=== PATIENT | female | born 1945 | race Caucasian/White ===

== ENCOUNTER 2017-04-09 16:59 | Observation (INO) | payer MEDICARE, BC ==
--- NOTE | 2017-04-09 17:37 | RAD ---
INDICATION: Chest pain COMPARISON: January 09, 2016 TECHNIQUE: An AP portable view obtained at 1720 hours is submitted. FINDINGS: Bones/Soft Tissues: There are no acute bony findings. Cardiomediastinal: The cardiomediastinal silhouette is normal. Lungs: There are no infiltrates. Pleura: There are no pleural effusions. Other: None IMPRESSION: NO ACTIVE DISEASE.
[2017-04-09 17:57] LABS: Hematocrit 41 % (35-47); Hemoglobin 13.9 g/dl (12.0-16.0); Mean Corpuscular HGB Conc 34 g/dl (31-36); Mean Corpuscular Hemoglobin 30 pg (27-31); Mean Corpuscular Volume 89 fL (80-97); Mean Platelet Volume 8 um3 (7.4-10.4); Red Cell Distribution Width 14 % (10.5-15); White Blood Count 5.4 10^3/ul (3.5-10.8)
[2017-04-09 18:14] LABS: ALT 10 U/L (7-52); AST 12 U/L (13-39); Albumin 4.1 g/dL (3.2-5.2); Alkaline Phosphatase 46 U/L (34-104); Anion Gap 9 mmol/L (2-11); BUN/Creatinine Ratio 20.8 (8-20); Blood Urea Nitrogen 21 mg/dL (6-24); C Reactive Protein < 1.00 mg/L (< 5.00); CO2 Carbon Dioxide 25 mmol/L (22-32); Calcium 9.3 mg/dL (8.6-10.3); Chloride 102 mmol/L (101-111); EGFR African American 69.5 (>60); Globulin 2.2 g/dL (2-4); Glucose 100 mg/dL (70-100); Lipase 24 U/L (11.0-82.0); Magnesium 2.1 mg/dL (1.9-2.7); Potassium 3.7 mmol/L (3.5-5.0); Sodium 136 mmol/L (133-145); Total Protein 6.3 g/dL (6.4-8.9)
[2017-04-09 18:42] LABS: TSH (Thyroid Stimulating Horm) 1.89 mcIU/mL (0.34-5.60)
[2017-04-09 21:47] LABS: Urine Bacteria Absent (Absent); Urine Bilirubin Negative (Negative); Urine Glucose Negative (Negative); Urine Nitrite Negative (Negative)
--- NOTE | 2017-04-09 21:49 | ED ---
Anusha Valverde Alfonso, scribed for John Dorado MD on 04/09/17 at 1813 . HPI Chest Pain - HPI Summary HPI Summary: This patient is a 72 year old F presenting to [facility] accompanied by a female with a chief complaint of chest pain since 3 days ago. The CC is described as heaviness. The patient rates the pain 5/10 in severity. Symptoms aggravated and alleviated by nothing. Patient reports fatigue, throat tightening, near syncope (3 times), pruritic rash across abdomen and on the chest, flea bites, mood swings, feeling paranoid, and SOB. Pt exercises outside 1 mile a day but has been unable to this past week secondary to weakness. PMHx of asthma. - History of Current Complaint Chief Complaint: EDChestPainROMI Time Seen by Provider: 04/09/17 18:02 Hx Obtained From: Patient Onset/Duration: Started Days Ago - 3 days ago Current Severity: Moderate Pain Intensity: 5 Pain Scale Used: 0-10 Numeric Character: Heaviness Aggravating Factor(s): Nothing Alleviating Factor(s): Nothing Associated Signs and Symptoms: Positive: Other: - Patient reports fatigue, throat tightening, near syncope (3 times), pruritic rash across abdomen and on the chest, flea bites, mood swings, feeling paranoid, and SOB. - Allergy/Home Medications Allergies/Adverse Reactions: Allergies Allergy/AdvReac Type Severity Reaction Status Date / Time Aspirin Allergy Severe Difficulty Verified 04/09/17 17:23 Breathing/Wheezing Diphenhydramine Allergy Severe Itching Verified 04/09/17 17:23 [From Benadryl] Levofloxacin [From Levaquin] Allergy Severe Unknown Verified 04/09/17 17:23 Reaction Details Penicillins Allergy Severe Itching Verified 04/09/17 17:23 Shellfish Allergy Allergy Severe Swelling Verified 04/09/17 17:23 Montelukast [From Singulair] Allergy Intermediate Rash Verified 04/09/17 17:23 Tetracycline Allergy Intermediate Itching Verified 04/09/17 17:23 Dextromethorphan Allergy Unknown Unknown Verified 04/09/17 17:23 [From Mucinex DM] Reaction Details Guaifenesin [From Mucinex DM] Allergy Unknown Unknown Verified 04/09/17 17:23 Reaction Details Statins Allergy Unknown Muscle Ache Verified 04/09/17 17:23 Yellow Dye [From Mucinex DM] Allergy Unknown Unknown Verified 04/09/17 17:23 Reaction Details Fluticasone Allergy Joint Pain Verified 04/09/17 17:23 [From Advair Diskus] Milk Protein Extract Allergy Joint Pain Verified 04/09/17 17:23 [From Advair Diskus] Salmeterol Allergy Joint Pain Verified 04/09/17 17:23 [From Advair Diskus] bee sting Allergy Severe Swelling Uncoded 04/09/17 17:23 PMH/Surg Hx/FS Hx/Imm Hx Cardiovascular History: Reports: Hx Hypercholesterolemia Respiratory History: Reports: Hx Asthma, Hx Sleep Apnea - evaluation for 03/2014 GI History: Reports: Hx Irritable Bowel Musculoskeletal History: Denies: Hx Osteoporosis Sensory History: Reports: Hx Cataracts, Hx Macular Degeneration Opthamlomology History: Reports: Hx Cataracts, Hx Macular Degeneration Psychiatric History: Reports: Hx Depression - Cancer History Hx Chemotherapy: No Hx Radiation Therapy: No Infectious Disease History: No Infectious Disease History: Denies: Traveled Outside the [place] in Last 30 Days - Family History Known Family History: Positive: Cardiac Disease - CHF, Other - CVA - Social History Alcohol Use: None Hx Substance Use: No Smoking Status (MU): Former Smoker Type: Cigarettes Have You Smoked in the Last Year: No Review of Systems Positive: Fatigue Positive: Other - throat tightening Positive: Shortness Of Breath Positive: Rash - pruritic rash across abdomen and on the chest, Other - flea bites Positive: Syncope - Near syncope Positive: Other - Mood swings, feeling paranoid All Other Systems Reviewed And Are Negative: Yes Physical Exam Triage Information Reviewed: Yes Vital Signs On Initial Exam: Initial Vitals Temp Pulse Resp BP Pulse Ox 96.9 F 74 20 135/83 98 04/09/17 17:00 04/09/17 17:00 04/09/17 17:00 04/09/17 17:00 04/09/17 17:00 Vital Signs Reviewed: Yes Appearance: Positive: Well-Appearing, No Pain Distress Skin: Positive: Warm, Skin Color Reflects Adequate Perfusion, Dry Head/Face: Positive: Normal Head/Face Inspection Eyes: Positive: Normal ENT: Positive: Normal ENT inspection Neck: Positive: Supple, Nontender Respiratory/Lung Sounds: Positive: Clear to Auscultation, Breath Sounds Present Cardiovascular: Positive: RRR Abdomen Description: Positive: Nontender, Soft Bowel Sounds: Positive: Present Musculoskeletal: Positive: Normal Neurological: Positive: Normal, Sensory/Motor Intact, Alert, Oriented to Person Place, Time, CN Intact II-III Psychiatric: Positive: Affect/Mood Appropriate Diagnostics - Vital Signs Vital Signs Temp Pulse Resp BP Pulse Ox 04/09/17 17:30 70 17 116/71 100 04/09/17 17:26 70 16 100 04/09/17 17:25 112/74 04/09/17 17:22 96.9 F 74 16 135/83 100 04/09/17 17:00 96.9 F 74 20 135/83 98 - Laboratory Lab Results: Lab Results 04/09/17 04/09/17 04/09/17 Range/Units 17:40 17:40 17:40 WBC 5.4 (3.5-10.8) 10^3/ul RBC 4.60 (4.0-5.4) 10^6/ul Hgb 13.9 (12.0-16.0) g/dl Hct 41 (35-47) % MCV 89 (80-97) fL MCH 30 (27-31) pg MCHC 34 (31-36) g/dl RDW 14 (10.5-15) % Plt Count 262 (150-450) 10^3/ul MPV 8 (7.4-10.4) um3 Neut % (Auto) 49.7 (38-83) % Lymph % (Auto) 33.6 (25-47) % [place] % (Auto) 13.6 H (1-9) % Eos % (Auto) 2.5 (0-6) % Baso % (Auto) 0.6 (0-2) % Absolute Neuts (auto) 2.7 (1.5-7.7) 10^3/ul Absolute Lymphs (auto) 1.8 (1.0-4.8) 10^3/ul Absolute Monos (auto) 0.7 (0-0.8) 10^3/ul Absolute Eos (auto) 0.1 (0-0.6) 10^3/ul Absolute Basos (auto) 0 (0-0.2) 10^3/ul Absolute Nucleated RBC 0 10^3/ul Nucleated RBC % 0 INR (Anticoag Therapy) 0.97 (0.89-1.11) APTT 30.4 (26.0-36.3) seconds D-Dimer, Quantitative < 200 (Less Than 230) ng/mL Sodium 136 (133-145) mmol/L Potassium 3.7 (3.5-5.0) mmol/L Chloride 102 (101-111) mmol/L Carbon Dioxide 25 (22-32) mmol/L Anion Gap 9 (2-11) mmol/L BUN 21 (6-24) mg/dL Creatinine 1.01 H (0.51-0.95) mg/dL Est GFR ( Amer) 69.5 (>60) Est GFR (Non-Af Amer) 54.0 (>60) BUN/Creatinine Ratio 20.8 H (8-20) Glucose 100 (70-100) mg/dL Lactic Acid (0.5-2.0) mmol/L Calcium 9.3 (8.6-10.3) mg/dL Magnesium 2.1 (1.9-2.7) mg/dL Total Bilirubin 0.70 (0.2-1.0) mg/dL AST 12 L (13-39) U/L ALT 10 (7-52) U/L Alkaline Phosphatase 46 (34-104) U/L Troponin I 0.00 (<0.04) ng/mL C-Reactive Protein < 1.00 (< 5.00) mg/L B-Natriuretic Peptide ( - 100) pg/mL Total Protein 6.3 L (6.4-8.9) g/dL Albumin 4.1 (3.2-5.2) g/dL Globulin 2.2 (2-4) g/dL Albumin/Globulin Ratio 1.9 (1-3) Lipase 24 (11.0-82.0) U/L TSH 1.89 (0.34-5.60) mcIU/mL Urine Color Urine Appearance Urine pH (5-9) Ur Specific [place] (1.010-1.030) Urine Protein (Negative) Urine Ketones (Negative) Urine Blood (Negative) Urine Nitrate (Negative) Urine Bilirubin (Negative) Urine Urobilinogen (Negative) Ur Leukocyte Esterase (Negative) Urine WBC (Auto) (Absent) Urine RBC (Auto) (Absent) Ur Squamous Epith Cells (Absent) Urine Bacteria (Absent) Urine Glucose (Negative) 04/09/17 04/09/17 04/09/17 Range/Units 17:40 17:40 21:05 WBC (3.5-10.8) 10^3/ul RBC (4.0-5.4) 10^6/ul Hgb (12.0-16.0) g/dl Hct (35-47) % MCV (80-97) fL MCH (27-31) pg MCHC (31-36) g/dl RDW (10.5-15) % Plt Count (150-450) 10^3/ul MPV (7.4-10.4) um3 Neut % (Auto) (38-83) % Lymph % (Auto) (25-47) % [place] % (Auto) (1-9) % Eos % (Auto) (0-6) % Baso % (Auto) (0-2) % Absolute Neuts (auto) (1.5-7.7) 10^3/ul Absolute Lymphs (auto) (1.0-4.8) 10^3/ul Absolute Monos (auto) (0-0.8) 10^3/ul Absolute Eos (auto) (0-0.6) 10^3/ul Absolute Basos (auto) (0-0.2) 10^3/ul Absolute Nucleated RBC 10^3/ul Nucleated RBC % INR (Anticoag Therapy) (0.89-1.11) APTT (26.0-36.3) seconds D-Dimer, Quantitative (Less Than 230) ng/mL Sodium (133-145) mmol/L Potassium (3.5-5.0) mmol/L Chloride (101-111) mmol/L Carbon Dioxide (22-32) mmol/L Anion Gap (2-11) mmol/L BUN (6-24) mg/dL Creatinine (0.51-0.95) mg/dL Est GFR ( Amer) (>60) Est GFR (Non-Af Amer) (>60) BUN/Creatinine Ratio (8-20) Glucose (70-100) mg/dL Lactic Acid 1.0 (0.5-2.0) mmol/L Calcium (8.6-10.3) mg/dL Magnesium (1.9-2.7) mg/dL Total Bilirubin (0.2-1.0) mg/dL AST (13-39) U/L ALT (7-52) U/L Alkaline Phosphatase (34-104) U/L Troponin I (<0.04) ng/mL C-Reactive Protein (< 5.00) mg/L B-Natriuretic Peptide 18 ( - 100) pg/mL Total Protein (6.4-8.9) g/dL Albumin (3.2-5.2) g/dL Globulin (2-4) g/dL Albumin/Globulin Ratio (1-3) Lipase (11.0-82.0) U/L TSH (0.34-5.60) mcIU/mL Urine Color Yellow Urine Appearance Clear Urine pH 6.0 (5-9) Ur Specific [place] 1.017 (1.010-1.030) Urine Protein Negative (Negative) Urine Ketones 1+ H (Negative) Urine Blood Negative (Negative) Urine Nitrate Negative (Negative) Urine Bilirubin Negative (Negative) Urine Urobilinogen Negative (Negative) Ur Leukocyte Esterase Trace H (Negative) Urine WBC (Auto) 1+(6-10/hpf) H (Absent) Urine RBC (Auto) Trace(0-2/hpf) (Absent) Ur Squamous Epith Cells Present H (Absent) Urine Bacteria Absent (Absent) Urine Glucose Negative (Negative) Result Diagrams: 04/09/17 17:40 04/09/17 17:40 Lab Statement: Any lab studies that have been ordered have been reviewed, and results considered in the medical decision making process. - Radiology CXR Radiology Interpretation Completed By: Radiologist - NO ACTIVE DISEASE. - EKG 1738 Cardiac Rate: NL - 65 bpm EKG Rhythm: Sinus Rhythm ST Segment: Normal EKG Interpretation: NAC Chest Pain Course/Dx - Course Course Of Treatment: Ms. Buck has a variety of C/O the most worrisome of which are chest pressure and episodes of near syncope. Her W/U was negative but she did have periods of frequent APC's on the monitor and I am concerned that she may be having dysrythmias. - Diagnoses Provider Diagnoses: Near syncope - Provider Notifications Discussed Care Of Patient With: Shahrzad Nixon Time Discussed With Above Provider: 21:19 Instructed by Provider To: Other - Consulted Dr. Nixon (hospitalist) who agrees to admit. Discharge - Discharge Plan Condition: Stable Disposition: ADMITTED TO [facility] Referrals: Libby Duarte MD [Primary Care Provider] - The documentation as recorded by the Anusha novoa Alfonso accurately reflects the service I personally performed and the decisions made by me, John Dorado MD.
[2017-04-09] MEDS ORDERED: NS 0.9% 1000 ML* 1,000 ML IV SCH (22:00)
--- NOTE | 2017-04-10 01:21 | HP ---
CC: Libby Duarte MD * HISTORY AND PHYSICAL: DATE OF ADMISSION: 04/09/17 PRIMARY CARE PROVIDER: Libby Duarte MD. ATTENDING PHYSICIAN: Shahrzad Nixon DO * (dictated by Darlene Shaffer NP). CHIEF COMPLAINT: Near syncope and chest heaviness for 3 days. HISTORY OF PRESENT ILLNESS: Ms. Buck is a 72-year-old female with past medical history significant for asthma, hyperlipidemia, irritable bowel syndrome , cataracts, macular degeneration, obstructive sleep apnea and depression, who presented to the emergency room with complaints of 3 days of intermittent chest heaviness with pain that started as sharpness in her sternum and radiates to the left side of her chest around her axillary area. Ms. Buck also has complaints of intermittent subjective fevers. She also reports that she has had more intermittent chest pain in general over the last 2 weeks, sometimes with shortness of breath. She also reports diarrhea over the last couple of days. She reports an extreme fatigue and needing to take naps during the day when she would generally not need to take naps. She also feels as though her throat is tight. She describes a feeling of like she was going to pass out when she stood up today and has had that one other time over the last couple of weeks. She also reports that over the last of couple of weeks she has had 2 episodes of what she describes as a curtain-like loss in her vision once while she was driving where at first, she feels likes a light colored curtain is coming over her eyes, that then turns to a darker and total blackness as the "curtain" in both eyes that lasted for a couple of seconds and then resolved. The patient feels that when she has been more fatigued recently, she may have been having some slurred speech, but other than that she denies any neurological deficits including facial drooping, one-sided weakness or slurred speech at any other times. The patient also reports a rash on her legs and thigh that she feels was caused from flee bites whiles visiting a friend's house. The patient also reports an itchy rash on her abdomen, chest and back that has been intermittent over the last few days that is currently not present. The patient has recently been having mood swings and paranoia, but she stopped taking Ocuvite and found that these symptoms have resolved. The patient states that she has been unable to exercise in which she usually walks a mile every day over the past week due to her extreme fatigue. The patient reports generally not having an appetite and has noticed that she has not been eating just because she has not been hungry. She reports yesterday having some pain in the center of her abdomen and having some bloating. She does feel as though some of her IBS symptoms may be getting worse. The patient denies any urinary symptoms. She decided to present to the emergency room for further evaluation of her symptoms. While in the emergency room, the patient had an EKG showing a sinus rhythm at the rate of 65, no signs of acute ischemia. This EKG was similar to previous EKG's. The patient had a chest x-ray showing no active cardiopulmonary disease. She had labs that were fairly unremarkable. Due to the patient's episode of near syncope, the hospitalists were asked to evaluate the patient for admission. PAST MEDICAL HISTORY: 1. Asthma. 2. Hyperlipidemia. 3. IBS. 4. Cataracts. 5. Macular degeneration. 6. Depression. 7. Obstructive sleep apnea. PAST SURGICAL HISTORY: 1. Status post cholecystectomy. 2. Status post tonsillectomy as a child. HOME MEDICATIONS: Include: 1. Albuterol 1 to 2 puffs inhalation every 4 hours as needed for shortness of breath or wheeze. 2. EpiPen as needed for allergy symptoms. ALLERGIES: Include ASPIRIN which causes difficulty breathing, BENADRYL which causes itching, LEVAQUIN and PENICILLIN causes itching, SHELLFISH which causes swelling, SINGULAIR causes rash, TETRACYCLINE causes itching, MUCINEX, STATINS cause muscle aches and joint pain, ADVAIR causes joint pain, BEE STINGS causes swelling. FAMILY HISTORY: The patient's maternal uncle had a history of hyperlipidemia and blocked carotids and underwent experimental treatment to correct the carotid blockages and lived into his 70s or 80s. The patient had a maternal aunt with a history of cerebrovascular accidents and congestive heart failure. The patient's maternal grandfather had a history of myocardial infarction in his 70s. The patient denies any family history of diabetes mellitus. The patient's maternal grandmother had a history of cervical cancer. The patient's mother passed at age 38 from ulcerative colitis complications. SOCIAL HISTORY: The patient is a former smoker, quitting at age 26, prior to that she smoked up to 3 packs a day during an 8-year time period. The patient rarely drinks alcohol. She denies recreational drug use. She is retired, but works as an artist. She lives with her , Yancy Maria, who will be her surrogate decision maker in the event she is unable to make decisions for herself. REVIEW OF SYSTEMS: I performed a 14-point review of systems. All the pertinent positives and negatives are mentioned in the history of present illness. The remaining review of systems are negative. PHYSICAL EXAMINATION GENERAL APPEARANCE: The patient is alert, pleasant, appears to be in no acute distress. VITAL SIGNS: Temperature 96.9, heart rate 65, respiratory rate 19, O2 sat 97% on room air, blood pressure 128/68. HEENT: Normocephalic, atraumatic. Pupils are equal and reactive to light. Extraocular movements are intact. NECK: Supple. There is no lymphadenopathy noted. RESPIRATORY: There is no accessory muscle use and the lungs are clear to auscultation bilateral. CARDIOVASCULAR: Regular rate and rhythm. S1 and S2 present. There is no murmurs, rubs or gallops heard. ABDOMEN: Soft, nontender, nondistended. Bowel sounds present x4. EXTREMITIES: There is no lower extremity edema. DP and PT pulses are 2+ and symmetric. MUSCULOSKELETAL: There is no clubbing or cyanosis noted. The patient exhibits good strength in all extremities. NEUROLOGIC: The patient is alert and oriented x4. Cranial nerves II through XII are grossly intact. The patient is able to perform [id number] bilateral without difficulty. Her hand mat cutter are equal. Her smile is symmetric. Her tongue is midline. She has no pronator drift. PSYCHOLOGICAL: The patient is calm and cooperative. SKIN: There are no rashes or abnormalities seen. DIAGNOSTIC STUDIES/LABORATORY DATA: Sodium 136, potassium 3.7, chloride 102, CO2 of 24, BUN 21, creatinine 1.01, glucose 100. White blood cell count is 5.4 , hemoglobin 13.9, hematocrit 41, and platelet count 262,000. EKG shows a sinus rhythm with the rate of 65. There are no acute signs of ischemia. The patient's EKG is similar to previous EKG from 01/09/16. Chest x-ray from today. Radiologist impression: No active cardiopulmonary disease. IMPRESSION: Ms. Buck is a 72-year-old female with past medical history significant for asthma, hyperlipidemia, cataracts, macular degeneration, depression, obstructive sleep apnea and irritable bowel syndrome who presented to the emergency room with complaints of intermittent chest discomfort and near - syncopal episodes. She will be admitted as an observation for near syncope. ASSESSMENT/PLAN: 1. Near syncope and vision changes. The patient reports a curtain-like loss of vision in both eyes, lasting for a few seconds and completely resolving. She has intermittently had this twice. We will check a head CT and get bilateral carotid Dopplers. The patient will do neurovascular checks every 4 hours. Check fasting lipids in the morning and monitor the patient on telemetry. We will check orthostatic vital signs. We will also give the patient a liter of fluid overnight and recheck orthostatic vital signs again in the morning. 2. Chest discomfort, unclear etiology at this time. The patient's initial troponin is 0.00. We will check one more troponin at midnight tonight. There are no acute signs of ischemia on her EKG. I will defer the patient's possibility of having a stress test to her primary care provider if she would like to have a stress test in the future as the patient would like to do thus at this time. 3. Hyperlipidemia, the patient is not currently on any medications. We will check a fasting lipid panel in the morning. 4. Macular degeneration and cataracts. The patient follows closely with her senior investigator and has an appointment scheduled to be seen for cataract extractions. 5. Obstructive sleep apnea, the patient will be continued on a CPAP with her home settings. If she continues to have extreme fatigue, she should be considered for a repeat sleep study. She may need to have another sleep apnea study completed. 6. Extreme fatigue, unclear cause. Again, this could be a contributor to the patient's sleep apnea if her CPAP settings are not correct. I do not suspect this is Lyme as the patient has no significant risk factors. She does not walk in the meneses or grassy area. If she does go out in grassy areas, she wears high boots with her pants tucked in. She has not noticed any tick bites or rashes suggestive of Lyme disease. Denies any joint discomfort or rash consistent with Lyme. 7. Fluids, electrolytes, and nutrition. The patient will be on a regular diet. 8. Code status. Full code. 9. DVT prophylaxis. The patient is at a moderate risk and will have subcu heparin. 10. Disposition. Observation. TIME SPENT: Time for this admission was approximately 60 minutes and greater than half of that was spent with the patient and discussing medications, past medical history, and the events leading up to her arrival today and performing a physical examination. The case has been reviewed with the attending, Dr. Nixon, who agrees with the plan of care. Reviewed by SILVIA BARBA 04/12/17 1144 [id number]/[facility] #: [id number] RANI
[2017-04-10 05:25] LABS: HDL Cholesterol 58.4 mg/dL
--- NOTE | 2017-04-10 07:45 | RAD ---
HISTORY: intermittent Loss of vision COMPARISONS: None TECHNIQUE: Multiple contiguous axial CT scans were obtained of the head without intravenous contrast. FINDINGS: HEMORRHAGE/INFARCT: There is no hemorrhage or acute infarct. MASSES/SHIFT: There is no mass or shift. EXTRA-AXIAL SPACES: There are no extra-axial fluid collections. SULCI AND VENTRICLES: The sulci and ventricles are normal in size and position for the patient's stated age. CEREBRUM: There are no focal parenchymal abnormalities. BRAINSTEM: There are no focal parenchymal abnormalities. CEREBELLUM: There are no focal parenchymal abnormalities. VESSELS: The vessels are grossly normal. PARANASAL SINUSES: The paranasal sinuses are clear. ORBITS: The orbits are unremarkable. BONES AND SOFT TISSUE: No bone or soft tissue abnormalities are noted. OTHER: None IMPRESSION: NO ACUTE INTRACRANIAL PATHOLOGY.
--- NOTE | 2017-04-10 10:31 | PN ---
Subjective Date of Service: 04/10/17 Interval History: Patient seen and examined at bedside. Ms. Buck endorses burning in her chest that radiates up into her throat and just above her stomach. She also reports reproducible pain in the left side of her chest in the axilllary region. Denies fever/chills, chest heaviness, visual changes, speech difficulties, shortness of breath. Overall, she feels better, other than the burning with food intake, and reports ambulating within her room. She does report increased fatigue and her partner reports that she often hears air leaks from the patient's CPAP mask at night; the patient states that it does feel looser since she lost weight a few months back. Family History: Unchanged from Admission Social History: Unchanged from Admission Past Medical History: Unchanged from Admission Objective Vital Signs 04/09/17 04/09/17 04/09/17 22:01 22:07 22:11 Temperature 97.7 F 97.7 F Pulse Rate 62 62 72 Respiratory 16 16 Rate Blood Pressure 130/62 130/62 111/68 (mmHg) O2 Sat by Pulse 98 98 Oximetry 04/09/17 04/09/17 04/10/17 22:13 23:49 03:21 Temperature 97.8 F 98.3 F Pulse Rate 79 65 65 Respiratory 16 16 Rate Blood Pressure 99/79 112/58 115/53 (mmHg) O2 Sat by Pulse 99 98 Oximetry 04/10/17 04/10/17 07:14 07:40 Temperature 97.8 F Pulse Rate 62 97 Respiratory 16 Rate Blood Pressure 117/60 120/94 (mmHg) O2 Sat by Pulse 99 Oximetry Oxygen Devices in Use Now: None Appearance: Female patient, lying in bed, in NAD Eyes: No Scleral Icterus Ears/Nose/Mouth/Throat: Clear Oropharnyx, Mucous Membranes Moist Neck: NL Appearance and Movements; NL JVP Respiratory: Symmetrical Chest Expansion and Respiratory Effort, Clear to Auscultation Cardiovascular: NL Sounds; No Murmurs; No JVD, RRR Abdominal: NL Sounds; No Tenderness; No Distention Extremities: No Edema Neurological: Alert and Oriented x 3, NL Gait, NL Muscle Strength and Tone, - - negative pronator drifts, MARIE, speech clear, CN II-XII grossly intact Lines/Tubes/Other Access: Clean, Dry and Intact Peripheral IV Nutrition: Taking PO's Result Diagrams: 04/09/17 17:40 04/09/17 17:40 Additional Lab and Data: Lab Results 04/09/17 04/09/17 04/09/17 Range/Units 17:40 17:40 17:40 WBC 5.4 (3.5-10.8) 10^3/ul RBC 4.60 (4.0-5.4) 10^6/ul Hgb 13.9 (12.0-16.0) g/dl Hct 41 (35-47) % MCV 89 (80-97) fL MCH 30 (27-31) pg MCHC 34 (31-36) g/dl RDW 14 (10.5-15) % Plt Count 262 (150-450) 10^3/ul MPV 8 (7.4-10.4) um3 Neut % (Auto) 49.7 (38-83) % Lymph % (Auto) 33.6 (25-47) % [place] % (Auto) 13.6 H (1-9) % Eos % (Auto) 2.5 (0-6) % Baso % (Auto) 0.6 (0-2) % Absolute Neuts (auto) 2.7 (1.5-7.7) 10^3/ul Absolute Lymphs (auto) 1.8 (1.0-4.8) 10^3/ul Absolute Monos (auto) 0.7 (0-0.8) 10^3/ul Absolute Eos (auto) 0.1 (0-0.6) 10^3/ul Absolute Basos (auto) 0 (0-0.2) 10^3/ul Absolute Nucleated RBC 0 10^3/ul Nucleated RBC % 0 INR (Anticoag Therapy) 0.97 (0.89-1.11) APTT 30.4 (26.0-36.3) seconds D-Dimer, Quantitative < 200 (Less Than 230) ng/mL Sodium 136 (133-145) mmol/L Potassium 3.7 (3.5-5.0) mmol/L Chloride 102 (101-111) mmol/L Carbon Dioxide 25 (22-32) mmol/L Anion Gap 9 (2-11) mmol/L BUN 21 (6-24) mg/dL Creatinine 1.01 H (0.51-0.95) mg/dL Est GFR ( Amer) 69.5 (>60) Est GFR (Non-Af Amer) 54.0 (>60) BUN/Creatinine Ratio 20.8 H (8-20) Glucose 100 (70-100) mg/dL Lactic Acid (0.5-2.0) mmol/L Calcium 9.3 (8.6-10.3) mg/dL Magnesium 2.1 (1.9-2.7) mg/dL Total Bilirubin 0.70 (0.2-1.0) mg/dL AST 12 L (13-39) U/L ALT 10 (7-52) U/L Alkaline Phosphatase 46 (34-104) U/L Troponin I 0.00 (<0.04) ng/mL C-Reactive Protein < 1.00 (< 5.00) mg/L B-Natriuretic Peptide ( - 100) pg/mL Total Protein 6.3 L (6.4-8.9) g/dL Albumin 4.1 (3.2-5.2) g/dL Globulin 2.2 (2-4) g/dL Albumin/Globulin Ratio 1.9 (1-3) Lipase 24 (11.0-82.0) U/L TSH 1.89 (0.34-5.60) mcIU/mL Urine Color Urine Appearance Urine pH (5-9) Ur Specific [place] (1.010-1.030) Urine Protein (Negative) Urine Ketones (Negative) Urine Blood (Negative) Urine Nitrate (Negative) Urine Bilirubin (Negative) Urine Urobilinogen (Negative) Ur Leukocyte Esterase (Negative) Urine WBC (Auto) (Absent) Urine RBC (Auto) (Absent) Ur Squamous Epith Cells (Absent) Urine Bacteria (Absent) Urine Glucose (Negative) 04/09/17 04/09/17 04/09/17 Range/Units 17:40 17:40 21:05 WBC (3.5-10.8) 10^3/ul RBC (4.0-5.4) 10^6/ul Hgb (12.0-16.0) g/dl Hct (35-47) % MCV (80-97) fL MCH (27-31) pg MCHC (31-36) g/dl RDW (10.5-15) % Plt Count (150-450) 10^3/ul MPV (7.4-10.4) um3 Neut % (Auto) (38-83) % Lymph % (Auto) (25-47) % [place] % (Auto) (1-9) % Eos % (Auto) (0-6) % Baso % (Auto) (0-2) % Absolute Neuts (auto) (1.5-7.7) 10^3/ul Absolute Lymphs (auto) (1.0-4.8) 10^3/ul Absolute Monos (auto) (0-0.8) 10^3/ul Absolute Eos (auto) (0-0.6) 10^3/ul Absolute Basos (auto) (0-0.2) 10^3/ul Absolute Nucleated RBC 10^3/ul Nucleated RBC % INR (Anticoag Therapy) (0.89-1.11) APTT (26.0-36.3) seconds D-Dimer, Quantitative (Less Than 230) ng/mL Sodium (133-145) mmol/L Potassium (3.5-5.0) mmol/L Chloride (101-111) mmol/L Carbon Dioxide (22-32) mmol/L Anion Gap (2-11) mmol/L BUN (6-24) mg/dL Creatinine (0.51-0.95) mg/dL Est GFR ( Amer) (>60) Est GFR (Non-Af Amer) (>60) BUN/Creatinine Ratio (8-20) Glucose (70-100) mg/dL Lactic Acid 1.0 (0.5-2.0) mmol/L Calcium (8.6-10.3) mg/dL Magnesium (1.9-2.7) mg/dL Total Bilirubin (0.2-1.0) mg/dL AST (13-39) U/L ALT (7-52) U/L Alkaline Phosphatase (34-104) U/L Troponin I (<0.04) ng/mL C-Reactive Protein (< 5.00) mg/L B-Natriuretic Peptide 18 ( - 100) pg/mL Total Protein (6.4-8.9) g/dL Albumin (3.2-5.2) g/dL Globulin (2-4) g/dL Albumin/Globulin Ratio (1-3) Lipase (11.0-82.0) U/L TSH (0.34-5.60) mcIU/mL Urine Color Yellow Urine Appearance Clear Urine pH 6.0 (5-9) Ur Specific [place] 1.017 (1.010-1.030) Urine Protein Negative (Negative) Urine Ketones 1+ H (Negative) Urine Blood Negative (Negative) Urine Nitrate Negative (Negative) Urine Bilirubin Negative (Negative) Urine Urobilinogen Negative (Negative) Ur Leukocyte Esterase Trace H (Negative) Urine WBC (Auto) 1+(6-10/hpf) H (Absent) Urine RBC (Auto) Trace(0-2/hpf) (Absent) Ur Squamous Epith Cells Present H (Absent) Urine Bacteria Absent (Absent) Urine Glucose Negative (Negative) Assess/Plan/Problems-Billing Assessment: - Patient Problems (1) Chest discomfort Code(s): R07.89 - OTHER CHEST PAIN Comment: Troponins negative, no acute signs of ischemia on EKG With reproducible pain in left chest, likely musculoskeletal in origin Discussed with patient, who agreed with f/u with PCP to schedule outpatient stress test. Carafate started for treatment of dyspepsia with food, recommend outpatient GI referral. (2) Near syncope Comment: No further episodes Patient reports decreased appetite and intake recently, which may be contributing to weakness. CT brain and carotid dopplers negative No arrhythmias seen on telemetry Orthostatic VS negative (3) Vision changes Code(s): H53.9 - UNSPECIFIED VISUAL DISTURBANCE Comment: Unclear if this is part of the syncope prodrome or an opthamology issue No further episodes; pt reports vision is currently at baseline Carotid doppler negative Patient recommended to follow-up with opthamologist for further evaluation Consider possibility of retinal thinning, given description of curtain like floaters (4) Sleep apnea Code(s): G47.30 - SLEEP APNEA, UNSPECIFIED Comment: Patient's mask may not be fitting appropriately, contributing to overall fatigue. Patient advised to adjust home mask and call supply company for new mask Patient referred to outpatient sleep clinic office for further evaluation and management. (5) HLD (hyperlipidemia) Code(s): E78.5 - HYPERLIPIDEMIA, UNSPECIFIED Comment: Patient with elevated cholesterol and LDLs. Patient advised to discuss medication options with PCP, as she reports allergic reaction to statins and other cholesterol medications. (6) Macular degeneration Code(s): H35.30 - UNSPECIFIED MACULAR DEGENERATION Comment: Continue outpatient f/u with opthamology. (7) Cataracts, bilateral Code(s): H26.9 - UNSPECIFIED CATARACT Comment: Continue outpatient f/u with opthamology. (8) Depression Code(s): F32.9 - MAJOR DEPRESSIVE DISORDER, SINGLE EPISODE, UNSPECIFIED Comment: Not on medication Continue supportive care (9) DVT prophylaxis Comment: SQ heparin Status and Disposition: OBV admit. D/c to home with outpatient f/u.
--- NOTE | 2017-04-10 11:43 | RAD ---
INDICATION: Visual changes. Intermittent vision loss COMPARISON: None TECHNIQUE: Transverse and longitudinal scans of the carotid and vertebral arteries were performed with adkins scale, color Doppler, and spectral Doppler imaging. Stenosis criteria is based on flow velocities that correlate with visual internal carotid artery diameter (NASCET criteria) FINDINGS: Right carotid: There is no demonstrable plaque. There is no spectral broadening. The peak systolic velocity of the internal carotid artery is 85 cm/s and the peak diastolic velocity 33 cm/s. The ICA/CCA ratio is calculated at 0.8. There is no stenosis. Left carotid: There is scant calcific plaque involving the bifurcation. There is no spectral broadening. The peak systolic velocity of the internal carotid artery is 100 cm/s and the peak diastolic velocity 36 cm/s. The ICA/CCA ratio is calculated at 0.9. This corresponds to a less than 50% diameter stenosis. Right vertebral: Right vertebral waveforms are normal and the flow is antegrade. Left vertebral: Left vertebral waveforms are normal and the flow is antegrade. IMPRESSION: NO EVIDENCE OF A HEMODYNAMICALLY SIGNIFICANT STENOSIS. CPT II Codes: 3100F [facility]
[2017-04-10] MEDS ORDERED: Sucralfate TAB* 1 GM PO SCH (12:00)
[2017-04-10 14:34] VITALS: BP 120/61
--- NOTE | 2017-04-11 03:34 | DS ---
CC: Libby Duarte MD; Dr. Mendez * DISCHARGE SUMMARY: DATE OF ADMISSION: 04/09/17 DATE OF DISCHARGE: 04/10/17 ATTENDING PHYSICIAN: Sigifredo Beard MD * (dictated by Merari Grant NP). PRIMARY CARE PROVIDER: Libby Duarte MD. PRIMARY DISCHARGE DIAGNOSES: 1. Near syncope. 2. Dyspepsia. 3. Visual changes. 4. Chest discomfort. SECONDARY DISCHARGE DIAGNOSES: 1. Asthma. 2. Hyperlipidemia. 3. Irritable bowel syndrome. 4. Cataracts. 5. Macular degeneration. 6. Depression. 7. Obstructive sleep apnea. HOME MEDICATIONS AT DISCHARGE: 1. EpiPen p.r.n. per instructions. 2. Albuterol inhaler q.4 hours p.r.n. 3. Carafate 1 g prior to meals. This is a new medication. DIAGNOSTIC TESTING DURING THIS ADMISSION: 1. Chest x-ray, 04/09/17, shows no active disease. 2. EKG from 04/09/17, shows normal sinus rhythm with no ischemic changes. 3. CT of the brain from 04/09/17 shows no acute intracranial pathology. 4. Carotid Doppler study from 04/10/17, shows no evidence of a hemodynamically significant stenosis. HOSPITAL COURSE: For full details, please refer to the H and P provided by Darlene Huertas NP, on 04/09/17. In summary, Ms. Buck is a 72-year- old female who presented with multiple complaints which included intermittent chest heaviness with pain that started in her sternum and radiated to the left side of her chest. She reported intermittent subjective fevers. She also reports extreme fatigue as well as diarrhea over the past couple of days. She reports throat tightness and burning in the esophagus. She reported an episode of near syncope that occurred on 04/09/17 as well as another episode similar a few weeks earlier. She reported two episodes of a curtain-like feeling in her vision that resolved within a couple of seconds. She reports a rash that she attributed to flea bites. She denied any other neurological deficits that included word searching, slurred speech, facial droop, or one-sided weakness. She does report that she has had a decrease in her appetite and has not been eating as much because she has not been hungry. Again, she reported pain in the center of her abdomen and there was bloating. The patient was admitted overnight for further observation. Her neurological checks were within normal limits. There were no arrhythmias noted on telemetry. No further episodes of near syncope or visual changes while here in the hospital. I have noted the patient's fasting lipid profile showed elevated total cholesterol and LDLs which I did discuss with the patient. She states that she had previously been on statins, did not tolerate this. She reports multiple medication allergies and would feel better discussing any further medication additions with her PCP, which is reasonable. She is aware of heart- healthy and low fat diet and has been trying to adhere to this. She reports that her cholesterol and LDLs have been improving over the past several months. In regard to the patient's fatigue, I did express concern for her history of sleep apnea and suggested that she may need to have her equipment reevaluated. The patient's partner reports that she often hears some air leak in the patient' s CPAP while sleeping. The patient does report that she has had some weight loss and I discussed that perhaps her mask may not fit as well as it should given this weight loss. She has been advised to try to adjust her mask tightness, but if this is insufficient, she should touch base with the [facility] for new masks. I also advised her to follow up with Dr. Howard's office for further sleep evaluation and management of her sleep apnea. In regards to the patient's visual changes, the patient does not give a story that is consistent with near syncope. It seems that she rarely had episodes of visual complaints. I did advise her to follow up with her analog ic design architect as soon as possible, as this could represent retinal thinning. She states that she does see her analog ic design architect on a regular basis and has an appointment to be seen shortly for cataract extractions. In regards to her chest discomfort, the patient described an episode of burning and severe discomfort following the initiation of breakfast this morning. It did not sound cardiac in origin. The patient states that as soon as she ate food, she started noticing a burning sensation and discomfort in the mid portion to her chest that radiated up through her throat and down to just above her stomach. She denies food getting stuck or difficulty swallowing. She has never had an endoscopy, but feels this would be beneficial. I did discuss the possibility of having her PCP refer her to an outpatient teacher visually impaired for further evaluation. We did try Carafate here in the hospital which she stated was very helpful with these symptoms at lunch time. A prescription has been sent for the Carafate for the patient to continue this at home until she is able to follow up with GI. The patient refused any PPIs stating that she has had bad reactions with these medications in the past. In regards to the chest heaviness the patient had described on admission, the patient was advised to follow up with her PCP for an outpatient stress test referral that she is in agreement with. She did not wish to pursue that here in the hospital during this admission. No other acute concerns. The patient was eager for discharge and felt safe enough to go home. She is ambulating safely. Her partner is in agreement. They are in agreement with following up with her PCP this coming Monday to arrange for these outpatient procedures and tests and followup visits. No other acute concerns at this time. CONCERNS AT DISCHARGE: Ms. Buck is discharged to home on 04/10/17. DIET: Heart healthy diet. ACTIVITY: As tolerated. CONDITION: Stable. DISPOSITION: To home. TIME SPENT: Time spent on this discharge was approximately 45 minutes. Again, this is only a brief summary of the patient's hospital course of stay. For full details, please refer to the full medical record. If you have any further questions or need further assistance, please feel free to contact me at [phone]. MERARI GRANT NP [id number]/[facility] #: [id number] RANI
== END 2017-04-10 15:22 | disposition home or self-care (01) ==
LOC: ED 16:59 → MEDTELE 21:02
PROVIDERS: ADMIT Hospitalist; ATTEND Internal Medicine
DX: R55 Syncope and collapse (principal); R10.13 Epigastric pain; H53.9 Unspecified visual disturbance; R07.9 Chest pain, unspecified; J45.909 Unspecified asthma, uncomplicated; E78.5 Hyperlipidemia, unspecified; K58.9 Irritable bowel syndrome, unspecified; H35.30 Unspecified macular degeneration; F32.9 Major depressive disorder, single episode, unspecified; G47.33 Obstructive sleep apnea (adult) (pediatric); Z88.6 Allergy status to analgesic agent; Z91.030 Bee allergy status; Z88.0 Allergy status to penicillin; Z91.013 Allergy to seafood; Z87.891 Personal history of nicotine dependence
CPT/HCPCS: 36415; 70450; 71010; 80053; 80061; 81003; 81015; 83605; 83690; 83735; 83880; 84443; 84484; 85025; 85379; 85610; 85730; 86140; 87086; 93005; 93880; 99283; A9270-GY; G0378; G8978-GP-CH; G8979-GP-CH; G8980-GP-CH

== ENCOUNTER 2017-06-16 12:28 | Emergency (ER) | payer MEDICARE, BC ==
--- NOTE | 2017-06-16 12:38 | UC ---
Cardiac HPI - HPI Summary HPI Summary: Arrives to ED by Private car with chest tightness that radiates in to jaw and left shoulder, states she feels SOB, awoke last night with chest pain, radiates in to jaw and arm, recent treadmill stress that was negative, 24 hour Holter with PAC PVC - History of Current Complaint Chief Complaint: UCChestPain Stated Complaint: CHEST PAIN Time Seen by Provider: 06/16/17 12:36 Hx Obtained From: Patient Onset/Duration: Sudden Onset, Lasting Hours Timing: Constant Initial Severity: Moderate Current Severity: Moderate Chest Pain Location: Mid Sternal Character: Tightness, Heaviness Aggravating Factor(s): Nothing Alleviating Factor(s): Nothing Associated Signs & Symptoms: Positive: Chest Pain, SOB - subjective - Allergy/Home Medications Allergies/Adverse Reactions: Allergies Allergy/AdvReac Type Severity Reaction Status Date / Time Aspirin Allergy Severe Difficulty Verified 06/16/17 12:42 Breathing/Wheezing Diphenhydramine Allergy Severe Itching Verified 06/16/17 12:42 [From Benadryl] Levofloxacin [From Levaquin] Allergy Severe Unknown Verified 06/16/17 12:42 Reaction Details Penicillins Allergy Severe Itching Verified 06/16/17 12:42 Shellfish Allergy Allergy Severe Swelling Verified 06/16/17 12:42 Montelukast [From Singulair] Allergy Intermediate Rash Verified 06/16/17 12:42 Tetracycline Allergy Intermediate Itching Verified 06/16/17 12:42 Dextromethorphan Allergy Unknown Unknown Verified 06/16/17 12:42 [From Mucinex DM] Reaction Details Guaifenesin [From Mucinex DM] Allergy Unknown Unknown Verified 06/16/17 12:42 Reaction Details Statins Allergy Unknown Muscle Ache Verified 06/16/17 12:42 Yellow Dye [From Mucinex DM] Allergy Unknown Unknown Verified 06/16/17 12:42 Reaction Details Fluticasone Allergy Joint Pain Verified 06/16/17 12:42 [From Advair Diskus] Milk Protein Extract Allergy Joint Pain Verified 06/16/17 12:42 [From Advair Diskus] Salmeterol Allergy Joint Pain Verified 06/16/17 12:42 [From Advair Diskus] bee sting Allergy Severe Swelling Uncoded 06/16/17 12:42 PMH/Surg Hx/FS Hx/Imm Hx Previously Healthy: No - low Vit B12 - Surgical History Surgical History: None Surgery Procedure, Year, and Place: gall bladder surgery - Family History Known Family History: Positive: None, Cardiac Disease - CHF, Other - CVA - Social History Occupation: Retired Lives: With Family Alcohol Use: Rare Substance Use Type: None Smoking Status (MU): Former Smoker Type: Cigarettes Have You Smoked in the Last Year: No Review of Systems Constitutional: Negative Skin: Negative Eyes: Negative ENT: Negative Respiratory: Negative Cardiovascular: Chest Pain Gastrointestinal: Negative Genitourinary: Negative Motor: Negative Neurovascular: Negative Musculoskeletal: Negative Neurological: Negative Psychological: Negative Is Patient Immunocompromised?: No All Other Systems Reviewed And Are Negative: Yes Physical Exam Triage Information Reviewed: Yes Appearance: Well-Appearing, No Pain Distress, Well-Nourished Vital Signs Reviewed: Yes Eye Exam: Normal Eyes: Positive: Conjunctiva Clear ENT Exam: Normal ENT: Positive: Normal ENT inspection, Hearing grossly normal, TMs normal. Negative: Nasal congestion, Nasal drainage, Trismus, Muffled/hoarse voice Dental Exam: Normal Neck exam: Normal Neck: Positive: Supple, Nontender Respiratory Exam: Normal Respiratory: Positive: Chest non-tender, Lungs clear, Normal breath sounds, No respiratory distress, No accessory muscle use Cardiovascular Exam: Normal Cardiovascular: Positive: RRR, No Murmur, Pulses Normal, Brisk Capillary Refill Musculoskeletal Exam: Normal Musculoskeletal: Positive: Strength Intact, ROM Intact, No Edema Neurological Exam: Normal Neurological: Positive: Alert, Muscle Tone Normal Psychological Exam: Normal Skin Exam: Normal Diagnostics - EKG Cardiac Rate: NL Cardiac Rhythm: Sinus: Normal Ectopy: None ST Segment: Normal - Assessment/Plan Course Of Treatment: SAline lock, transfer [place] [facility] [place] - Clinical Impression Provider Diagnoses: Chest Pain - Physician Notifications Discussed Patient Care With: Sandi Lemus Time Discussed With Above Provider: 13:20 Instructed by Provider To: Transfer Discharge - Discharge Plan Condition: Guarded Disposition: TRANS [facility]
[2017-06-16 13:34] VITALS: BP 120/70
== END 2017-06-16 13:17 | disposition short-term general hospital (02) ==
LOC: UCEAST 12:28
DX: R07.9 Chest pain, unspecified (principal); Z88.6 Allergy status to analgesic agent; Z88.1 Allergy status to other antibiotic agents; Z91.030 Bee allergy status; Z91.040 Latex allergy status; Z91.011 Allergy to milk products; Z88.8 Allergy status to other drugs, medicaments and biological substances; Z91.048 Other nonmedicinal substance allergy status
CPT/HCPCS: 93005; 99214; G0463

== ENCOUNTER 2017-09-13 09:21 | Emergency (ER) | payer MEDICARE, BC ==
[2017-09-13 09:47] VITALS: BP 131/72
--- NOTE | 2017-09-13 10:35 | UC ---
Eye Complaint HPI - HPI Summary HPI Summary: 2 DAYS OF RIGHT EYE IRRITATION AND LOWER EYELID LESION WITH REDNESS AND SWELLING. VISION IS BLURRY. NO FEVER, NAUSEA OR HILL. DID HAVE SOME BLOODY MUCUS FROM RIGHT SIDE OF NOSE TODAY WHEN BLOWING HER NOSE. NO ACTIVE BLEEDING. - History of Current Complaint Chief Complaint: UCEye Stated Complaint: EYE COMPLAIN, BLOODY NOSE Time Seen by Provider: 09/13/17 10:27 Hx Obtained From: Patient Onset/Duration: Gradual Onset, Lasting Days, Still Present Timing: Constant Severity Initially: Mild Severity Currently: Mild Pain Intensity: 1 Pain Scale Used: 0-10 Numeric Location of Injury: Eye Lid (lower) - RIGHT Character: Sharp Aggravating Factor(s): Blinking Alleviating Factor(s): Nothing - Allergies/Home Medications Allergies/Adverse Reactions: Allergies Allergy/AdvReac Type Severity Reaction Status Date / Time Aspirin Allergy Severe Difficulty Verified 06/16/17 12:42 Breathing/Wheezing Diphenhydramine Allergy Severe Itching Verified 06/16/17 12:42 [From Benadryl] Levofloxacin [From Levaquin] Allergy Severe Unknown Verified 06/16/17 12:42 Reaction Details Penicillins Allergy Severe Itching Verified 06/16/17 12:42 Shellfish Allergy Allergy Severe Swelling Verified 06/16/17 12:42 Montelukast [From Singulair] Allergy Intermediate Rash Verified 06/16/17 12:42 Tetracycline Allergy Intermediate Itching Verified 06/16/17 12:42 Dextromethorphan Allergy Unknown Unknown Verified 06/16/17 12:42 [From Mucinex DM] Reaction Details Guaifenesin [From Mucinex DM] Allergy Unknown Unknown Verified 06/16/17 12:42 Reaction Details Statins Allergy Unknown Muscle Ache Verified 06/16/17 12:42 Yellow Dye [From Mucinex DM] Allergy Unknown Unknown Verified 06/16/17 12:42 Reaction Details Fluticasone Allergy Joint Pain Verified 06/16/17 12:42 [From Advair Diskus] Milk Protein Extract Allergy Joint Pain Verified 06/16/17 12:42 [From Advair Diskus] Salmeterol Allergy Joint Pain Verified 06/16/17 12:42 [From Advair Diskus] bee sting Allergy Severe Swelling Uncoded 06/16/17 12:42 PMH/Surg Hx/FS Hx/Imm Hx Respiratory History: Asthma - Surgical History Surgical History: Yes Surgery Procedure, Year, and Place: gall bladder surgery, ta - Family History Known Family History: Positive: Cardiac Disease - CHF, Other - CVA - Social History Alcohol Use: Rare Substance Use Type: None Smoking Status (MU): Former Smoker Type: Cigarettes Have You Smoked in the Last Year: No Review of Systems Constitutional: Negative Eyes: Blurred Vision, Eye Redness Respiratory: Negative Cardiovascular: Negative Gastrointestinal: Negative All Other Systems Reviewed And Are Negative: Yes Physical Exam Triage Information Reviewed: Yes Appearance: Well-Appearing, No Pain Distress, Well-Nourished Vital Signs: Initial Vital Signs Temp 97.2 F 09/13/17 09:41 Pulse 70 09/13/17 09:41 Resp 16 09/13/17 09:41 BP 131/72 09/13/17 09:41 Pulse Ox 100 09/13/17 09:41 Vital Signs Reviewed: Yes Eyes: Positive: Conjunctiva Clear, Other: - RIGHT LOWER EYELID WITH ERYTHEMA, EDEMA AND TENDER VESICULAR LESION. Negative: Discharge ENT: Positive: Hearing grossly normal, Pharynx normal, Other - RIGHT NARIS WITH FRIABLE EPITHELIUM MEDIALLY Neck: Positive: Supple Respiratory: Positive: No respiratory distress, No accessory muscle use Cardiovascular: Positive: Pulses Normal Abdomen Description: Positive: Soft Musculoskeletal: Positive: No Edema Neurological: Positive: Alert Psychological: Positive: Age Appropriate Behavior Skin: Negative: rashes Eye Complaint Course/Dx - Course Course Of Treatment: CALLED [facility] AND SCHED APPT FOR PT AT 2PM WITH DR. MEREDITH. - Differential Dx/Diagnosis Provider Diagnoses: RIGHT LOWER EYELID LESION/SWELLING Discharge - Discharge Plan Condition: Stable Disposition: HOME Patient Education Materials: Eye Pain (ED) Referrals: Libby Duarte MD [Primary Care Provider] - If Needed Additional Instructions: YOU HAVE AN APPT WITH DR. MEREDITH AT [facility] TODAY AT 2PM FOR FURTHER EVALUATION.
== END 2017-09-13 11:05 | disposition home or self-care (01) ==
LOC: UCEAST 09:21
DX: H53.8 Other visual disturbances (principal); R60.9 Edema, unspecified; Z87.891 Personal history of nicotine dependence
CPT/HCPCS: 99211; G0463